=== PATIENT | male | born 1965 | race Caucasian/White ===

== ENCOUNTER 2017-05-17 00:21 | Emergency (ER) | payer BC ==
[~2017-05-17] VITALS: Ht 165.1 cm; Wt 90.7 kg
[2017-05-17 00:21] VITALS: BP_SYST 127
--- NOTE | 2017-05-17 00:21 | NUR ---
Patient to ER bed 6 to gown for evaluation. Side rails up. Report given to RONY HERRERA.
--- NOTE | 2017-05-17 00:21 | NUR ---
Patient brought to ED via ALS ALOC with c/o alcohol intoxication and possible syncopal episode. Patient was found down in grass by . Patient denies KO. No signs of trauma. Patient involved in verbal dispute with daughter yesterday leading to increased alcohol consumption. Denies N/V. Respirations even and unlabored. -CP. Hx of kidney transplant. Skin warm and dry.
--- NOTE | 2017-05-17 00:29 | NUR ---
ED Alli at bedside for medical evaluation.
--- NOTE | 2017-05-17 01:02 | NUR ---
Pt taken to CT via [facility].
[2017-05-17 01:15] LABS: BASOPHILS # (AUTO) 0.1 K/uL (0.0-0.2); BASOPHILS % (AUTO) 0.7 % (0.0-2.0); EOSINOPHILS # (AUTO) 0.2 K/uL (0.0-0.4); EOSINOPHILS % (AUTO) 1.5 % (0.0-4.0); HEMATOCRIT 43.1 % (36-54); LYMPHOCYTES # (AUTO) 1.8 K/uL (1.0-5.5); LYMPHOCYTES % (AUTO) 15.7 % (20.5-51.5); MEAN CORPUSCULAR HEMOGLOBIN 28 pg (27-31); MEAN CORPUSCULAR HGB CONC 33 % (32-36); MEAN CORPUSCULAR VOLUME 85 fL (79.0-98.0); MONOCYTES # (AUTO) 0.8 K/uL (0.0-1.0); MONOCYTES % (AUTO) 7.1 % (1.7-9.3); NEUTROPHILS # (AUTO) 8.7 K/uL (1.8-7.7); PLATELET COUNT (AUTO) 202 K/uL (130-430); RED BLOOD CELL COUNT(AUTO) 5.08 MIL/uL (4.2-6.2); RED CELL DISTRIBUTION WIDTH 12.7 % (9.0-15.0); WHITE BLOOD COUNT (AUTO) 11.6 K/uL (4.8-10.8)
[2017-05-17] MEDS ORDERED: NACL 0.9% 1,000 ML IV ONE (01:15)
[2017-05-17] MEDS ORDERED: NORMAL SALINE 10 ML VIAL IVP ONE (01:15)
--- NOTE | 2017-05-17 01:19 | NUR ---
Pt returned from CT via [facility]
[2017-05-17 01:26] LABS: CALCIUM 8.8 mg/dL (8.4-11.0); CREATININE 1.15 mg/dL (0.55-1.30); POTASSIUM 3.6 mmol/L (3.5-5.1)
[2017-05-17 01:29] LABS: BILIRUBIN,URINE NEGATIVE (NEGATIVE); BLOOD, URINE NEGATIVE (NEGATIVE); CLARITY/URINE CLEAR (CLEAR); COLOR,URINE YELLOW (YELLOW); GLUCOSE,URINE NEGATIVE (NEGATIVE); KETONES,URINE NEGATIVE (NEGATIVE); LEUKOCYTE ESTERASE ,URINE NEGATIVE (NEGATIVE); NITRITE, URINE NEGATIVE (NEGATIVE); PH,URINE 5.5 (5.0-8.0); PROTEIN URINE NEGATIVE (NEGATIVE); UROBILINOGEN,URINE 0.2 (0.2-1.0)
[2017-05-17 01:31] LABS: ALBUMIN 3.7 g/dL (3.4-4.8); TOTAL BILIRUBIN 0.3 mg/dL (0.0-1.0)
[2017-05-17 01:36] LABS: INR 0.9 (0.80-1.20); PROTHROMBIN TIME 9.3 SECS (9.5-12.5)
[2017-05-17 01:41] LABS: BARBITURATE, URINE NEGATIVE (NEG <=200); BENZODIAZEPINE, URINE NEGATIVE (NEG <=150); CANNABINOID, URINE NEGATIVE (NEG <=50); COCAINE, URINE NEGATIVE (NEG <=150); METHAMPHETAMINES SCREEN,URINE NEGATIVE (NEG <=500); OPIATE, URINE NEGATIVE (NEG <=100); PHENCYCLIDINE SCREEN,URINE NEGATIVE (NEG <=25); UR TRICYCLIC ANTIDEPRESSANTS NEGATIVE (NEG <=300); URINE AMPHETAMINE NEGATIVE (NEG <=500); URINE METHADONE NEGATIVE (NEG <=200); URINE OXYCODONE SCREEN NEGATIVE (NEG <=100); URINE PROPOXYPHENE SCREEN NEGATIVE (NEG <=300)
--- NOTE | 2017-05-17 02:01 | NUR ---
Patient ambulates with steady gait. Able to speak in full sentences. Responds to questions appropriately. Vital signs within normal limits. Will continue to monitor.
[2017-05-17 02:10] VITALS: BP_SYST 121
--- NOTE | 2017-05-17 02:10 | NUR ---
Patient given written and verbal discharge instructions and verbalizes understanding. ER MD discussed with patient the results and treatment provided. Patient in stable condition. ID arm band removed. IV catheter removed intact and dressing applied, no active bleeding. No Rx given. Patient educated on pain management and to follow up with PMD. Pain Scale 0/10. Opportunity for questions provided and answered.
--- NOTE | 2017-05-17 10:40 | NUR ---
Radiology discrepancy, per Dr. Gunter no intervention is required at this time, however the patient should follow up. CT results were faxed to Dr. Caleb Cisneros for follow up.
== END 2017-05-17 02:10 | disposition home or self-care (01) ==
LOC: SED 00:21
DX: F10.129 Alcohol abuse with intoxication, unspecified (principal); R03.0 Elevated blood-pressure reading, without diagnosis of hypertension; Z94.0 Kidney transplant status; Y90.4 Blood alcohol level of 80-99 mg/100 ml
CPT/HCPCS: 36415; 70450; 71045; 80053; 80307; 81003; 84484; 85025; 85610; 85730; 93005; 99285; G0482; J7030